=== PATIENT | male | born 1955 | race Caucasian/White ===

== ENCOUNTER 2018-04-21 08:42 | Day surgery (SDC) | payer OTHER ==
[2018-04-21] MEDS ORDERED: LIDO GARGLE 30 ML BOTTLE PO ONE (08:51)
[2018-04-21] MEDS ORDERED: LIDO GARGLE 30 ML BOTTLE ONE (09:03)
[2018-04-21] MEDS ORDERED: LACTATED RINGERS 1,000 ML IV ONE (09:22)
[2018-04-21] MEDS ORDERED: MIDAZOLAM 2 MG/2 ML VIAL IVP ONE (09:25)
[2018-04-21] MEDS ORDERED: fentaNYL 250 MCG/5 ML VIAL IVP ONE (09:25)
[2018-04-21 10:44] VITALS: BP 136/77
== END 2018-04-21 08:43 | disposition home or self-care (01) ==
LOC: SDS 08:42
PROVIDERS: ATTEND Surgery
PROC: 0DJD8ZZ Inspection of Lower Intestinal Tract, Via Natural or Artificial Opening Endoscopic (ICD-10-PCS; principal; 2018-04-21 09:40)
PROC: 0DB48ZX Excision of Esophagogastric Junction, Via Natural or Artificial Opening Endoscopic, Diagnostic (ICD-10-PCS; 2018-04-21 09:40)
DX: Z12.11 Encounter for screening for malignant neoplasm of colon (principal); K21.9 Gastro-esophageal reflux disease without esophagitis; K57.30 Diverticulosis of large intestine without perforation or abscess without bleeding; K64.8 Other hemorrhoids
CPT/HCPCS: 43239; 45378; A9270; J3010; J7120

== ENCOUNTER 2022-02-12 15:26 | Outpatient (CLI) | payer OTHER ==
[2022-02-12 15:45] LABS: BASOPHILS % (AUTO) 0.8 %; EOSINOPHILS # (AUTO) 0.2 10^3/uL (0.0-0.7); EOSINOPHILS % (AUTO) 4.3 %; HCT - HEMATOCRIT 47.7 % (42.0-52.0); HGB - HEMOGLOBIN 15.2 g/dL (14.0-18.0); LYMPHOCYTES # (AUTO) 1.1 10^3/uL (1.5-3.5); LYMPHOCYTES % (AUTO) 21.2 %; MEAN CORPUSCULAR HEMOGLOBIN 28.3 pg (27.0-31.0); MEAN CORPUSCULAR HGB CONC 31.9 g/dL (32.0-36.0); MEAN CORPUSCULAR VOLUME 88.7 fL (80.0-94.0); MONOCYTES # (AUTO) 0.6 10^3/uL (0.0-1.0); MONOCYTES % (AUTO) 11.3 %; NEUTROPHILS # (AUTO) 3.2 10^3/uL (1.5-6.6); NEUTROPHILS % (AUTO) 62.2 %; PLT - PLATELET COUNT 216 10^3/uL (130-450); RED BLOOD COUNT 5.38 10^6/uL (4.70-6.10); RED CELL DISTRIBUTION WIDTH 14.1 % (12.0-15.0); WHITE BLOOD COUNT 5.1 x10^3/uL (4.8-10.8)
[2022-02-12 15:59] LABS: ALBUMIN/GLOBULIN RATIO 1.3 (1.0-2.2); ALKALINE PHOSPHATASE 53 IU/L (42-121); ALT ALANINE AMINOTRANSFERASE 28 IU/L (10-60); AST ASPARTATE AMINOTRANSFERASE 20 IU/L (10-42); BILIRUBIN,TOTAL 0.8 mg/dL (0.2-1.0); BUN - BLOOD UREA NITROGEN 22 mg/dL (6-20); CALCIUM 9.1 mg/dL (8.5-10.3); CARBON DIOXIDE - CO2 26 mmol/L (21-32); CHLORIDE 101 mmol/L (101-111); CHOL/HDL RATIO 5.5 (<5.0); CHOLESTEROL 241 mg/dL; CREATININE 0.8 mg/dL (0.6-1.2); GFR - MDRD 97 (>89); GLUCOSE 99 mg/dL (70-100); HDL CHOLESTEROL 44 mg/dL; LDL CHOLESTEROL,CALCULATED 148 mg/dL; LDL/HDL RATIO 3.4 (<3.6); POTASSIUM 4.2 mmol/L (3.5-5.0); SODIUM 136 mmol/L (135-145); TRIGLYCERIDES 244 mg/dL; VLDL CHOLESTEROL 49 mg/dL
[2022-02-12 22:51] LABS: ESTIMATED AVERAGE GLUCOSE 128 mg/dL (70-100); HEMOGLOBIN A1c% 6.1 % (4.27-6.07)
== END 2022-02-12 15:27 | disposition home or self-care (01) ==
LOC: LAB.R 15:26
PROVIDERS: ATTEND Internal Medicine
DX: Z00.00 Encounter for general adult medical examination without abnormal findings (principal); R07.9 Chest pain, unspecified; K21.9 Gastro-esophageal reflux disease without esophagitis; E78.5 Hyperlipidemia, unspecified; R73.01 Impaired fasting glucose; G47.00 Insomnia, unspecified; M54.50 Low back pain, unspecified; I73.00 Raynaud's syndrome without gangrene
CPT/HCPCS: 80053; 80061; 83036; 83721; 84443; 85025

== ENCOUNTER 2023-11-05 10:50 | Outpatient (CLI) | payer MEDICARE, OTHER ==
--- NOTE | 2023-11-05 10:15 | CARDIAC PROCEDURE NOTE ---
Stress Test Report Service Date: 11/05/23 Service Time: 11:00 Ordering Provider: Meagan Diggs MD Indication for Test: Assess exertional chest discomfort. Significant Medical History: Eliseo has a number of coronary heart disease risk factors, as elaborated below. He has also had a "frozen left shoulder" and workup about 12 years ago revealed a herniated nucleus pulposus at C6/7, causing left arm paresthesias since then. He also has a history of GERD and Faye's esophagus, for which he was treated long-term with omeprazole prior to stopping it, with only rare "fiery" epigastric symptoms since then that resolve with prn Mylanta. About a year ago he started experiencing exertional left arm numbness and discomfort, with radiation to his left shoulder and neck area, minimally into his central chest, but not accompanied by shortness of breath or marked diaphoresis. This symptom cluster has limited his ability to be active, including walking on flat ground for more than about a quarter of a mile. He has to stop to rest, leans forward on his elbows and reports that in 5 to 10 minutes he is able to carry on. He does describe an episode of these symptoms occurring at rest while traveling in [place] a couple of weeks ago, that resolved in about 20 minutes. He does not recall feeling especially worse in the days immediately following this episode. He does not believe that the symptoms experienced currently are related to his Faye's esophagus, but he reports that there is some overlap with the symptoms he experienced in the past attributed to his cervical spine disease. Cardiac Risk Factors: Positive for hypertension treated for about 5 years, impaired fasting glucose (IFG) and hyperlipidemia (fasting lipids in 02/11 included total cholesterol 241, LDLc 148, HDLc 44, TG 244) not treated with statin; he was a smoker for about 20 years at 1 pack/day but quit in 1995, so this is not an active risk factor; no known history of coronary heart disease in close relatives to his knowledge, though his sister had open heart surgery in the past year (he's not sure if coronary or valvular) and his elderly mother has amyloidosis. Type of Stress Test: Exercise Treadmill Test (ETT) Procedure: -Exercise Treadmill Test- After signing informed consent, the patient performed treadmill exercise using a Scottie protocol. The patient exercised for 4 minutes 17 seconds and achieved a peak heart rate of 124 (81 percent predicted maximum heart rate for age), and an estimated workload of 6.2 METS. The test was terminated due to chest pain occurred before achieving target HR, with abnormal EKG response. Resting heart rate: 75 Peak heart rate: 124 Normal response to exercise. Resting BP: 126/86 Peak BP: 167/77 (with exercise), 208/97 (in Recovery) Normal BP response to exercise. Rhythm during exercise: Sinus rhythm throughout, without ectopy. Symptoms: The patient experienced onset of his typical left arm discomfort, radiating upward to his shoulder and neck region in late stage I; by mid stage II this was associated with upper chest tightness. The test was stopped and once he was seated he was given a sublingual nitroglycerin tablet, with reduction in symptom intensity in 2 to 3 minutes and full resolution by about 5 minutes. He reported no acute adverse toleration of the SL NTG. EKG at rest showed normal sinus rhythm, with likely normal variant early precordial R/S transition, with normal/interpretable ST/T wave pattern. EKG at peak stress showed horizontal ST depression meeting diagnostic criteria for ischemia. In Recovery HR decreased normally to near resting baseline level; BP increased initially then decreased nearly to baseline level (142/92 at 15:00). No imaging was ordered with this stress test. IMichael MD, was present throughout this treadmill stress study and supervised it in its entirety. Summary: 1) Exercise tolerance likely below average, as evidenced by GHASSAN of 35% (though the test was terminated prematurely due to symptoms/EKG responses). 2) Normal resting EKG. 3) Adequate level of exercise was achieved on this treadmill stress test. 4) Normal BP response to exercise. 5) Ischemic changes by EKG criteria were seen at peak stress. 6) No imaging was ordered with this test. Conclusions and Recommendations: 1) Due to the patient's clinically high pre-test probability, recreation of his typical anginal symptoms and associated ST depression it is highly likely that he has severe stenosis of one or more major coronary arteries. 2) Immediately following the test's conclusion I was able to speak with his referring provider (Dr. Diggs) with recommendations for initiation of medications to include prn sublingual nitroglycerin, rosuvastatin 20 mg daily and metoprolol tartrate 25 mg twice daily. She and her staff will work to determine where Eliseo can optimally be seen in the near future by a car diologist, whom I believe will likely recommend urgent cardiac catheterization. Eliseo was given detailed written instructions that elaborated in detail the findings and recommended plan. This has also been faxed to Dr. Diggs's office.
== END 2023-11-05 10:51 | disposition home or self-care (01) ==
LOC: DI 10:50
PROVIDERS: ATTEND Internal Medicine
DX: R07.89 Other chest pain (principal); I10 Essential (primary) hypertension; R73.01 Impaired fasting glucose; E78.5 Hyperlipidemia, unspecified; Z87.891 Personal history of nicotine dependence
CPT/HCPCS: 93017

== ENCOUNTER 2023-12-02 11:02 | Outpatient (CLI) | payer MEDICARE, OTHER ==
[2023-12-02 11:11] LABS: BASOPHILS # (AUTO) 0.1 10^3/uL (0.0-0.1); BASOPHILS % (AUTO) 0.8 %; EOSINOPHILS # (AUTO) 0.4 10^3/uL (0.0-0.7); EOSINOPHILS % (AUTO) 5.4 %; HCT - HEMATOCRIT 48.2 % (42.0-52.0); HGB - HEMOGLOBIN 14.9 g/dL (14.0-18.0); LYMPHOCYTES # (AUTO) 1.5 10^3/uL (1.5-3.5); LYMPHOCYTES % (AUTO) 23.1 %; MEAN CORPUSCULAR HEMOGLOBIN 27.5 pg (27.0-31.0); MEAN CORPUSCULAR HGB CONC 30.9 g/dL (32.0-36.0); MEAN CORPUSCULAR VOLUME 89.1 fL (80.0-94.0); MEAN PLATELET VOLUME 9.3 fL (7.4-11.4); MONOCYTES # (AUTO) 0.6 10^3/uL (0.0-1.0); MONOCYTES % (AUTO) 9.9 %; NEUTROPHILS # (AUTO) 3.9 10^3/uL (1.5-6.6); NEUTROPHILS % (AUTO) 60.5 %; PLT - PLATELET COUNT 237 10^3/uL (130-450); RED BLOOD COUNT 5.41 10^6/uL (4.70-6.10); RED CELL DISTRIBUTION WIDTH 13.9 % (12.0-15.0); WHITE BLOOD COUNT 6.4 x10^3/uL (4.8-10.8)
[2023-12-02 11:25] LABS: BUN - BLOOD UREA NITROGEN 20 mg/dL (6-20); CALCIUM 9.3 mg/dL (8.5-10.3); CARBON DIOXIDE - CO2 32 mmol/L (21-32); CHLORIDE 103 mmol/L (101-111); CHOL/HDL RATIO 4.4 (<5.0); CHOLESTEROL 159 mg/dL; CREATININE 0.9 mg/dL (0.6-1.3); GFR - MDRD 84 (>89); GLUCOSE 105 mg/dL (74-104); HDL CHOLESTEROL 36 mg/dL; LDL CHOLESTEROL,CALCULATED 82 mg/dL; LDL/HDL RATIO 2.3 (<3.6); POTASSIUM 4.2 mmol/L (3.5-4.5); SODIUM 138 mmol/L (135-145); TRIGLYCERIDES 204 mg/dL (48-352); VLDL CHOLESTEROL 41 mg/dL
== END 2023-12-02 11:03 | disposition home or self-care (01) ==
LOC: LAB 11:02
PROVIDERS: ATTEND Internal Medicine Interventional Cardiology
DX: I20.9 Angina pectoris, unspecified (principal)
CPT/HCPCS: 36415; 80048; 80061; 83721; 85025

== ENCOUNTER 2024-04-22 09:40 | Outpatient (CLI) | payer MEDICARE, OTHER ==
[2024-04-22 10:04] LABS: BASOPHILS % (AUTO) 0.5 %; EOSINOPHILS # (AUTO) 0.3 10^3/uL (0.0-0.7); EOSINOPHILS % (AUTO) 5.2 %; HCT - HEMATOCRIT 45.9 % (42.0-52.0); HGB - HEMOGLOBIN 13.7 g/dL (14.0-18.0); LYMPHOCYTES # (AUTO) 1.1 10^3/uL (1.5-3.5); LYMPHOCYTES % (AUTO) 16.8 %; MEAN CORPUSCULAR HEMOGLOBIN 25.4 pg (27.0-31.0); MEAN CORPUSCULAR HGB CONC 29.8 g/dL (32.0-36.0); MEAN PLATELET VOLUME 9.7 fL (7.4-11.4); MONOCYTES # (AUTO) 0.7 10^3/uL (0.0-1.0); MONOCYTES % (AUTO) 10.5 %; NEUTROPHILS # (AUTO) 4.2 10^3/uL (1.5-6.6); NEUTROPHILS % (AUTO) 66.8 %; PLT - PLATELET COUNT 205 10^3/uL (130-450); RED CELL DISTRIBUTION WIDTH 14.8 % (12.0-15.0); WHITE BLOOD COUNT 6.3 x10^3/uL (4.8-10.8)
[2024-04-22 10:16] LABS: ALBUMIN 4.5 g/dL (3.2-5.5); ALBUMIN/GLOBULIN RATIO 1.7 (1.0-2.2); ALKALINE PHOSPHATASE 63 IU/L (42-121); ALT ALANINE AMINOTRANSFERASE 16 IU/L (10-60); AST ASPARTATE AMINOTRANSFERASE 15 IU/L (10-42); BILIRUBIN,TOTAL 0.6 mg/dL (0.2-1.0); BUN - BLOOD UREA NITROGEN 27 mg/dL (6-20); CALCIUM 9.7 mg/dL (8.5-10.3); CARBON DIOXIDE - CO2 26 mmol/L (21-32); CHLORIDE 106 mmol/L (101-111); CHOL/HDL RATIO 3.6 (<5.0); CHOLESTEROL 118 mg/dL; CREATININE 0.8 mg/dL (0.6-1.3); GFR - MDRD 96 (>89); GLUCOSE 106 mg/dL (74-104); HDL CHOLESTEROL 33 mg/dL; LDL CHOLESTEROL,CALCULATED 59 mg/dL; LDL/HDL RATIO 1.8 (<3.6); POTASSIUM 4.4 mmol/L (3.5-4.5); SODIUM 139 mmol/L (135-145); TOTAL PROTEIN 7.1 g/dL (6.4-8.9); TRIGLYCERIDES 131 mg/dL; VLDL CHOLESTEROL 26 mg/dL
== END 2024-04-22 09:41 | disposition home or self-care (01) ==
LOC: LAB 09:40
PROVIDERS: ATTEND Internal Medicine Interventional Cardiology
DX: I25.119 Atherosclerotic heart disease of native coronary artery with unspecified angina pectoris (principal); Z95.1 Presence of aortocoronary bypass graft; E78.2 Mixed hyperlipidemia
CPT/HCPCS: 36415; 80053; 80061; 83721; 85025